=== PATIENT | female | born 1985 | race Caucasian/White ===

== ENCOUNTER → 2019-03-30 08:28 | Outpatient (CLI) | payer OTHER, SELFPAY ==
[2019-03-30 09:35] LABS: Bilirubin Urine UA NEGATIVE (NEGATIVE); Color Urine UA YELLOW; Glucose Urine UA NEGATIVE (Negative); Ketones Urine UA NEGATIVE (NEGATIVE); Leukocyte Esterase Urine UA NEGATIVE (NEGATIVE); Nitrite Urine UA NEGATIVE (Negative); Occult Blood Urine UA NEGATIVE (Negative); Protein Urine UA NEGATIVE (Negative); Urobilinogen Urine UA 0.2 E.U./dL (0.2); pH Urine UA 6.5 (4.5-8.0)
[2019-03-30 09:36] LABS: Appearance Urine UA Slightly Cloudy
[2019-03-30 09:42] LABS: Add Manual Diff / Slide Review NO; Basophils Absolute Auto 0 /uL (0-100); Basophils Percent Auto 0.3 % (0-2); Eosinophils Absolute Auto 100 /uL (0-450); Eosinophils Percent Auto 1.2 % (2-4); Hematocrit 36.9 % (36-46); Hemoglobin 12.6 g/dL (12.0-16.0); Lymphocytes Absolute Auto 1700 /uL (1100-4500); Lymphocytes Percent Auto 22.1 % (25-40); Mean Corpuscular HGB Conc 34.1 % (30-36); Mean Corpuscular Hemoglobin 29.4 PG (26-34); Mean Corpuscular Volume 86.1 fL (80-100); Monocytes Absolute Auto 500 /uL (0-900); Monocytes Percent Auto 6.5 % (3-14); Neutrophils Absolute Auto 5500 /uL (1500-7000); Neutrophils Percent Auto 69.9 % (50-75); Platelet Count 334 X10^3/uL (150-400); Red Blood Cell Count 4.28 X10^6/uL (4.0-5.2); Red Cell Distribution Width 13.3 % (11.6-14.8); White Blood Cell Count 7.9 X10^3/uL (4.5-11.0)
[2019-03-30 10:28] LABS: Hepatitis B Surface Antigen NEGATIVE s/c (NEGATIVE)
[2019-03-30 10:47] LABS: HIV 1 & 2 Ab/Ag 4th Gen Combo NEGATIVE (NEGATIVE); Hep C Virus Ab w/Reflex Quant NEGATIVE s/c (NEGATIVE)
[2019-04-01 23:56] LABS: RPR Screen Nonreactive (Nonreactive)
== END ==
PROVIDERS: Visit Provider Specialist
DX: Z34.90 Encounter for supervision of normal pregnancy, unspecified, unspecified trimester (principal)
CPT/HCPCS: 36415; 80055; 81003; 86787; 86803; 86850; 86900; 86901; 87086; 87389

== ENCOUNTER → 2019-04-11 18:32 | Outpatient (ROUT) | payer OTHER, SELFPAY ==
[2019-04-11 20:13] LABS: Urine N gonorrhoeae NOT DETECTED
[2019-04-11 20:15] LABS: Urine Chlamydia NOT DETECTED
== END ==
PROVIDERS: Visit Provider Specialist
DX: Z34.81 Encounter for supervision of other normal pregnancy, first trimester (principal)
CPT/HCPCS: 87491; 87591

== ENCOUNTER → 2019-07-04 14:19 | Outpatient (CLI) | payer OTHER, SELFPAY ==
--- NOTE | 2019-07-04 14:22 | DI.US.S_ITS ---
PROCEDURE: US OB >= 14 WEEKS FETUS INDICATIONS: ANATOMY OUTSIDE/PRIOR DATING DATA: Last menstrual period (LMP): 02/05/19. LMP-based estimated date of delivery (DOLLY): 10/15/19. First dating scan (date and location): 04/11/19. Estimated date of delivery (DOLLY) from first dating scan: 11/10/19. TECHNIQUE: Real-time scanning was performed of the fetus, with image documentation and biometric measurements. Endovaginal scanning: No COMPARISON: [employer] [facility], , OB >= 14 WEEKS FETUS, 06/11/2019, 10:29. FINDINGS: General: A single living intrauterine gestation is present. Presentation: Vertex. Placenta: Placental position is anterior, without previa. Amniotic fluid index: 15.1 cm cm, normal range is 5-24 cm. heart rate: 152 beats per minute. Maternal cervical canal: 3.2 cm long. Normal lower limit is 2.5 cm. biometrics: Biparietal diameter: 22 weeks 0 days Head circumference: 22 weeks 3 days Abdominal circumference: 23 weeks Femur length: 21 weeks 4 days Estimated gestational age from initial scan: 21 weeks 4 days Composite gestational age from present scan: 20 weeks 2 days Estimated weight and percentile: 498 g; 84th percentile Measurement variability for biometric dating: +/- 7 days from 14 weeks to 15 weeks 6 days gestation, +/- 10 days from 16 weeks to 21 weeks 6 days gestation, +/- 2 weeks from 22 weeks to 27 weeks 6 days gestation, +/- 3 weeks for 28 weeks gestation or later. weight reference: 4500 g or EFW >90/95% is considered macrosomia or large for gestational age. EFW <10% is small for gestational age. EFW 5% or less is considered intra-uterine growth restriction. Anatomic survey: Neuro: Ventricles are non-dilated at less than 10 mm. Cisterna magna is normal at 3-11 mm. Cerebellum is normal in size and morphology. Nuchal skin fold: Normal at less than 6 mm between 14-21 weeks gestational age. Face: Nose and lips, facial profile are normal. Spine: No evidence for spina bifida. Heart: 4-chambered heart is present, with normal ventricular outflow tracts. Diaphragm: Diaphragm is intact. Stomach: Left-sided stomach is present. Kidneys: No hydronephrosis. Normal is less than 5 mm in 2nd trimester, less than 7 mm in 3rd trimester. Cord: 3-vessel cord has orthotopic insertion. Bladder: Normal in size. Extremities: All 4 extremities identified. IMPRESSION: 1. Normal interval growth. 2. Normal anatomic survey. Dictated by: Cristhian Todd [facility] Interpreted: Grace Healy MD on 07/04/2019 at 15:19 Approved by: Grace Healy MD, PhD on 07/04/2019 at 16:54
== END ==
PROVIDERS: PCP Specialist; Visit Provider Specialist
DX: Z34.82 Encounter for supervision of other normal pregnancy, second trimester (principal); Z3A.20 20 weeks gestation of pregnancy
CPT/HCPCS: 76811

== ENCOUNTER → 2019-07-23 09:57 | Outpatient (CLI) | payer OTHER, SELFPAY ==
[2019-07-23 11:57] LABS: Hematocrit 34.5 % (36-46); Hemoglobin 11.8 g/dL (12.0-16.0)
[2019-07-23 12:10] LABS: GTT (PREG) 1 Hour PP 50gm Dose 108 mg/dL (76-139)
== END ==
PROVIDERS: PCP Specialist; Visit Provider Specialist
DX: Z34.82 Encounter for supervision of other normal pregnancy, second trimester (principal)
CPT/HCPCS: 36415; 82950; 85014; 85018

== ENCOUNTER → 2019-10-19 10:39 | Outpatient (CLI) | payer OTHER, SELFPAY ==
[2019-10-20 08:57] LABS: Strep Grp B PCR NEG for Grp B Strep
== END ==
PROVIDERS: PCP Specialist; Visit Provider Specialist
DX: Z34.83 Encounter for supervision of other normal pregnancy, third trimester (principal); Z3A.36 36 weeks gestation of pregnancy
CPT/HCPCS: 87653

== ENCOUNTER 2019-11-09 01:05 | Inpatient (IN) | payer OTHER, SELFPAY ==
[2019-11-09 01:33] VITALS: BP 123/85
[2019-11-09] MEDS: LACTATED RINGERS 1,000 ML 100 ML IV ×3 (01:59→12:36)
[2019-11-09 02:01] LABS: Add Manual Diff / Slide Review NO; Basophils Absolute Auto 100 /uL (0-100); Basophils Percent Auto 0.8 % (0-2); Eosinophils Absolute Auto 100 /uL (0-450); Eosinophils Percent Auto 0.9 % (2-4); Hematocrit 37.2 % (36-46); Hemoglobin 12.7 g/dL (12.0-16.0); Lymphocytes Absolute Auto 2300 /uL (1100-4500); Lymphocytes Percent Auto 22.5 % (25-40); Mean Corpuscular HGB Conc 34.1 % (30-36); Mean Corpuscular Hemoglobin 30.3 PG (26-34); Mean Corpuscular Volume 88.8 fL (80-100); Monocytes Absolute Auto 700 /uL (0-900); Neutrophils Absolute Auto 7200 /uL (1500-7000); Neutrophils Percent Auto 68.8 % (50-75); Platelet Count 275 X10^3/uL (150-400); Red Blood Cell Count 4.19 X10^6/uL (4.0-5.2); Red Cell Distribution Width 13.1 % (11.6-14.8); White Blood Cell Count 10.4 X10^3/uL (4.5-11.0)
--- NOTE | 2019-11-09 06:37 | P.HPOB_ITS ---
OB HPI Date/Time Date of admission: 11/09/19 Date Patient Seen: 11/09/19 Time Patient Seen: 06:37 History of Present Condition Chief complaint: LABOR : 2 Para: 1 Estimated Date of Delivery: 11/13/19 Estimated Gestational Age (weeks): 39w3d Narrative: Jami Siddiqui is a 34 year old female at 39 weeks and 3 days gestation. Contractions began yesterday and increased in intensity at midnight. has been uncomplicated with good care with Dr. Baig. Normal labs and ultrasounds. Patient denies leaking of fluid or vaginal bleeding and reports good movement. Denies headaches, vision changes or new swelling. History of Present care: initiated at week # (9), number of visits (11) and pounds weight gain (21) Dating criteria: LMP confirmed by 1st trimester US Ultrasounds: normal mid trimester US Obstetrical complications: none Medical complications: none Preadmission Labs Blood type: O (+) positive -: Antibody screen: negative, GBS status: negative, HBsAG: negative, HIV: negative and RPR/VDLR: negative -: Chlamydia screen: not detected and Gonorrhea screen: not detected -: Rubella: immune and Varicella: immune HCT: 36.9 HCAB: negative PAP: Normal Urine: Negative 1 hr GTT: 108 Prior (ies) History: 06/08/2017 , induction at 41 for postdates, 6# 14 oz male, epidural, baby transferred after due to concern for clotting disorder Evaluation Evaluation Baseline heart rate: 130 Variability: Average (6-10) monitor accelerations: Present monitor decelerations: Absent Contraction Frequency (minutes): 3 Category of Tracing: II Cervical dilation (cm): 7 Cervical effacement (%): 100 station: -3 Laboratory results: Laboratory Tests 11/09/19 11/09/19 01:45 01:45 WBC 10.4 RBC 4.19 Hgb 12.7 Hct 37.2 MCV 88.8 MCH 30.3 MCHC 34.1 RDW 13.1 Plt Count 275 Neut % (Auto) 68.8 Lymph % (Auto) 22.5 L [place] % (Auto) 7.0 Eos % (Auto) 0.9 L Baso % (Auto) 0.8 Neut # (Auto) 7200 H Lymph # (Auto) 2300 [place] # (Auto) 700 Eos # (Auto) 100 Baso # (Auto) 100 Blood Type O Positive Antibody Screen Negative ON LICENSE OF [facility] Medical History Vaginal delivery (Inactive 06/08/17) Social History Smoking Status: Never smoker Meds Home Medications and Allergies Home Medications Medication Instructions Recorded Confirmed Type No Known Home Medications 11/09/19 11/09/19 History Allergies Allergy/AdvReac Type Severity Reaction Status Date / Time amoxicillin [AMOXICILLIN] Allergy Mild Verified 11/17/18 08:58 Review of Systems Review of Systems ROS: Yes All systems reviewed with the patient and are negative except as otherwise documented Exam Vital Signs (past 8 hours): - 11/09/19 01:33 Blood Pressure 123/85 Temperature 36.5? blood pressure 100/61 heart rate 75 Const General: healthy appearing and comfortable HENMT Head: normal to inspection Ears: hearing grossly normal bilaterally Nose: external nose normal Face and sinus: normal facial exam Mouth: oral mucosae normal Eyes General: appearance normal, both eyes and all related structures Neck Neck: normal visual inspection Resp Effort & Inspection: normal respiratory effort Cardio Rate: regular rate GI Other: Gravid External Female Exam: external appearance normal Manual OB Exam: dilated 7, effaced fully and station high Presentation: vertex Estimated Weight (lbs): 7 Back/Spine/Pelvis Back: normal to inspection Skin General: no rashes or lesions noted Extrem General: normal to inspection and no pedal edema Objective Labs Result Diagrams: 11/09/19 01:45 Labs: Laboratory Results - last 24 hr 11/09/19 11/09/19 01:45 01:45 WBC 10.4 RBC 4.19 Hgb 12.7 Hct 37.2 MCV 88.8 MCH 30.3 MCHC 34.1 RDW 13.1 Plt Count 275 Neut % (Auto) 68.8 Lymph % (Auto) 22.5 L [place] % (Auto) 7.0 Eos % (Auto) 0.9 L Baso % (Auto) 0.8 Neut # (Auto) 7200 H Lymph # (Auto) 2300 [place] # (Auto) 700 Eos # (Auto) 100 Baso # (Auto) 100 Blood Type O Positive Antibody Screen Negative Assessment and Plan Assessment and Plan Assessment and Plan narrative: 34-year-old at 39 weeks and 3 days gestation in active labor. Comfortable with epidural. GBS negative. She has had slow cervical change management expert the last 3 hours but has changed. Head is still high, suspect asynclitic or OP. Will continue with the peanut ball and frequent turn ing. Reassess in 1 hour, if no change will start Pitocin.
--- NOTE | 2019-11-09 08:20 | PM.OBPNLAB ---
Date/Time Date Patient Seen: 11/09/19 Time Patient Seen: 08:15 Pain Control Pain control: epidural Pelvic Exam Dilation (cm): 8 Effacement (%): 100 station: -2 Amniotic membrane status: Ruptured (AROM thin meconium) Contractions Contraction frequency (min): 4 Status status: Category l Heart Rate Baseline: 130 Monitor Accelerations: Present Monitor Decelerations: Absent Monitor Variability: Moderate Assessment and Plan Assessment: active labor Plan: continuous present management
--- NOTE | 2019-11-09 09:38 | PM.OBPNLAB ---
Date/Time Date Patient Seen: 11/09/19 Time Patient Seen: 09:30 Pain Control Pain control: tolerating well Comments: Feeling rectal pressure with contractions but not between contractions. Pelvic Exam Dilation (cm): 10 Effacement (%): 100 station: -1 Amniotic membrane status: Ruptured (AROM thin meconium) Contractions Contraction frequency (min): 5 Contraction pattern: Regular Status status: Category ll Heart Rate Baseline: 130 Monitor Accelerations: Present Monitor Decelerations: Variable Monitor Variability: Moderate Assessment and Plan Assessment: active labor Plan: continuous present management Comments: Shortly after AROM patient had a prolonged 4 minute deceleration to the 60's. Oxygen applied and fluids bolused. Smaller variables continued for several contractions then resolved. Dr. Clarke was made aware of the situation. Patient then developed significant rectal pressure with a contraction so was checked and found to be complete and minus 1. Will wait for constant rectal pressure before initiating pushing.
--- NOTE | 2019-11-09 11:20 | P.PNOB_ITS ---
Date/Time Date Patient Seen: 11/09/19 Time Patient Seen: 11:20 Pain Control Pain control: epidural Pelvic Exam Dilation (cm): 10 Effacement (%): 100 station: -1 Amniotic membrane status: Ruptured (AROM thin meconium) Contractions Contraction frequency (min): 4 Contraction pattern: Regular Status status: Category ll Heart Rate Baseline: 130 Monitor Accelerations: Present Monitor Decelerations: Prolonged (with pushing) Monitor Variability: Moderate Assessment and Plan Plan: Comments: Patient complete and attempted pushing however had a prolonged deceleration for over 2 minutes to the 80s. Dr. Clarke was asked to come at that time. FHT recovered however there was another prolonged deceleration for 5 minutes with pushing with eventual recovery to baseline. Dr. Clarke placed a FSE and noted no significant descent with pushing. Given intolerance of labor and lack of descent, the decision was made to proceed with primary c- section. Risks reviewed with patient, specifically risk of infection, bleeding, injury to fetus or nearby organs (bowel and bladder). Consent signed and placed in chart. Clindamycin 900 mg IV will be given prior to surgery due to penicillin allergy.
--- NOTE | 2019-11-09 11:20 | PM.PREOP ---
Pre-operative Note Interval Note History & Physical reviewed/Exam performed by Physician: Yes Changes to H&P: No
[2019-11-09] MEDS: CLINDAMYCIN 900 MG/50 ML PIGGYBACK 50 MG IV (11:36)
--- NOTE | 2019-11-09 11:57 | SUR.OPER ---
Supine on Padded OR bed, head on pillow, safety belt at thigh, arms secured on padded arm boards at <90 degrees abduction. Bump under right buttock. Legs uncrossed with pillow under knees, gel pad to heels, tape over blanket to lower legs.
--- NOTE | 2019-11-09 12:20 | SUR.OPER ---
FHT's 116 TOB alive male at 11:56 am Cord blood x 2 and placenta given to OB nurse
[2019-11-09] MEDS: ACETAMINOPHEN IV 1,000 MG/100 ML VIAL 400 MG IV (12:27)
[2019-11-09 12:56] VITALS: BP 105/73; PULSE 66; RESP 21; TEMP 36.1; O2SAT 98
[2019-11-09 13:01] VITALS: BP 100/70; PULSE 64; RESP 17; O2SAT 97
[2019-11-09 13:06] VITALS: BP 108/71; PULSE 73; RESP 11; O2SAT 97
[2019-11-09 13:11] VITALS: BP 101/66; PULSE 71; RESP 11; O2SAT 97
[2019-11-09] MEDS: KETOROLAC 30 MG/ML VIAL IV ×2 (13:12→20:49)
[2019-11-09 13:15] VITALS: BP 104/71; PULSE 59; RESP 15; O2SAT 97
--- NOTE | 2019-11-09 13:33 | SUR.PHASEI ---
pt transferred to center in stable condition, vss. pt and baby at bedside upon arrival to room. Bedside report given to HARRISON Ulloa and transferred care of pt to her at that time. Pt in stable condition, alert and talking to and RN at bedside.
--- NOTE | 2019-11-09 15:59 | PM.OBPNLAB ---
Date/Time Date Patient Seen: 11/09/19 Time Patient Seen: 10:40 Pain Control Pain control: epidural Pelvic Exam Dilation (cm): 10 Effacement (%): 100 station: -1 Amniotic membrane status: Ruptured (AROM thin meconium) Comments: OP position Contractions Contraction frequency (min): 4 Contraction pattern: Regular Status status: Category ll Heart Rate Baseline: 125 Monitor Accelerations: Absent Monitor Decelerations: Prolonged Monitor Variability: Moderate Assessment and Plan Plan: Comments: I was consulted as OBGYN environmental protection geologist, as Dr. Baig is out of the hospital this week. Consulted and patient reviewed with me. 34-year-old P1 female. She had a prior vaginal delivery, pushed for 4-1/2 hours and delivered from OP position. This had been uncomplicated and she had presented in labor, making normal progress to 8 cm. I was consulted to be on standby when at 8cm after AROM, she had a deceleration for 3 minutes down to 70 which recovered, to baseline, but then she initially continued with intermittent moderate variable decelerations. On my arrival the moderate variable deceleration and had gradually decreased in intensity and then initially resolved for awhile. Baseline was normal and she had moderate variability, category 2 EFM. FHR then had return of intermittent mild and moderate variable decelerations, at times repetitive then would result intermittent, with normal baseline, moderate variability, Cat 2 EFM. She was allowed to labor with close observation. She progressed to completely dilated. With pushing with being completely dilated, she had a severe deceleration to the 70s with good recovery. I was present towards the end of this push and exam under with her next push. She was pushing fairly well but with only a little descent with the push. Position was noted to be OP position, -1 station. With the pushed FHR had a prolonged deceleration to 70s, for 5 minutes. I placed a scalp electrode, to help delineate the FHR since maternal pulse had also been in the 70s and every HR was in the 70s. FHR had recovery to 120s with repositioning patient to her left side, and no decelerations over the next 4 contractions. I discussed the significant FHR deceleration with the pushing, and it appeared the patient would need to push awhile, with the baby's position and progress with that 1 push. Thus I recommended proceeding with section since remote from delivery. I discuss could have her try pushing on her side but I suspected the severe deceleration would recur even on her side as she pushed the baby lower.. She preferred to proceed with at this time. I reviewed section procedure. I discussed small risk of the procedure including bleeding, infection, injury to adjacent organs including bowel and bladder, as well as small risk of injury to the baby.. Written consent was obtained. OR had already been notified of possible with the prolonged deceleration and was now notified that we would proceed with section. FHR remained more reassuring now without pushing, with a normal baseline and only mild to quick moderate variable deceleration and with being on her left side. Since she had some spotty areas with her epidural, plan was to place a spinal for the and FHR without pushing was reassuring to proceed this way. Clindamycin was ordered for antibiotics prophylaxis due to her Amoxacillin allergy.
--- NOTE | 2019-11-09 16:34 | PM.OP.1 ---
Operative Date/Time/Diagnoses Date of procedure: 11/09/19 Time of procedure: 12:45 Procedure & Clinicians Procedure: Primary section Same procedure as scheduled: Yes Indications: 39 weeks gestation, intolerance of labor Surgeon: Belkis [employer] Chief Creative Officer: Joana Lorenzo Anesthesia Type: Spinal Operative Notes Findings: Baby was in the right occiput posterior position. Nuchal cord x1 was present which was reduced. Amniotic fluid appeared clear on delivery, previously light meconium had been noted with AROM. Normal uterus, tubes and ovaries were noted. Vigorous viable baby boy was delivered, weight 6 lb 0 oz, Apgars 9,10. Closure Type: primary Specimen(s): other (Cord blood sent to lab. Placenta will be disposed of.) Applied: catheter Estimated Blood Loss (mL): 250 Blood products transfused: none Procedure in detail: IV fluids: 1500 mL crystalloid Urine output: 600 mL Description procedure: She was transferred from the center to the operating room. She was given IV clindamycin for prophylaxis. After an adequate level of spinal anesthesia was obtained, she was placed in the supine position, Verdugo catheter was placed and the scalp lead was removed. FHR auscultated after spinal anesthesia was 115. I re-checked FHR after scalp lead was removed and FHR was 100s. She was quickly prepped and draped in routine sterile fashion. A Pfannenstiel skin incision was made in the lower abdomen and carried down to the level of the fascia. The fascia was incised in the midline and was bluntly extended transversely. The superior and inferior edges of the fascia were elevated and dissected off the rectus muscles with sharp and blunt dissection. The muscles were bluntly split in the midline. The parietal peritoneum was elevated, incised and extended bluntly. The bladder blade was placed. The visceral peritoneum was elevated off the lower uterus, incised and the bladder flap was bluntly created. The bladder blade retractor was placed. A transverse incision was made in the lower uterus and the uterus was entered revealing clear fluid. The uterine incision was extended transversely with blunt dissection. Directly beneath the incision was the baby's shoulders. The head was palpable inferior to the pubic bone fairly low in the pelvis from her pushing. The head was able to be elevated without difficulty to the uterine incision and delivered through the incision with some minimal fundal pressure. appear to be elevated from the OP position. Nuchal cord x1 was reduced. Anterior and posterior shoulders followed by the body were delivered with ease. The cried spontaneously. Cord was clamped and cut and the was handed off to respiratory therapy who was present for delivery. Cord blood was obtained a specimen. The placenta was manually removed. It appeared intact with a normal three-vessel cord. The uterus was swept clean of adherent clots and membranes. The uterus was brought through the abdominal incision and closed in 2 layers with 0 Vicryl, the 1st layer being in running locking continuous fashion and the 2nd layer being in a vertical imbricating type fashion. With closure of the 1st layer on her left side there was noted to be bleeding from a small arterial vessel, appeared to be a branch of the uterine artery, since adjacent to this vessel was the vertical running uterine artery. A superficial [id number] suture around the uterine artery was placed and hemostasis was obtained. After then placing the 2nd imbricating layer hemostasis remained. The tubes and ovaries were inspected and noted to be normal. The uterus was placed back into the maternal abdomen. The paracolic gutters were inspected and wiped of some minimal blood and fluid. The anterior cul-de-sac was inspected and some clot was removed. The uterine incision was inspected and good hemostasis was noted. The pelvis was irrigated. Repeat inspection showed continued hemostasis. The abdomen was closed. The muscles were reapproximated with 2 interrupted sutures of 0 Vicryl. The fascia was closed with running continuous suture of 0 Vicryl. The skin was closed with a subcuticular suture of 4 0 Monocryl. Steri-Strips and sterile Aquacel dressing was placed. She tolerated the procedure well and went to the recovery room in stable condition. Complications: none Post-operative Condition: stable Disposition: PACU Plan for aftercare: Transferred to the Center in good condition
[2019-11-09] MEDS: DOCUSATE 250 MG CAPSULE PO (20:48)
[2019-11-10] MEDS: KETOROLAC 30 MG/ML VIAL IV ×2 (02:13→08:11)
[2019-11-10 06:57] LABS: Add Manual Diff / Slide Review NO; Basophils Absolute Auto 0 /uL (0-100); Basophils Percent Auto 0.3 % (0-2); Eosinophils Absolute Auto 100 /uL (0-450); Eosinophils Percent Auto 0.8 % (2-4); Hematocrit 28.8 % (36-46); Hemoglobin 9.8 g/dL (12.0-16.0); Lymphocytes Absolute Auto 1800 /uL (1100-4500); Lymphocytes Percent Auto 18.2 % (25-40); Mean Corpuscular HGB Conc 34.1 % (30-36); Mean Corpuscular Hemoglobin 30.7 PG (26-34); Monocytes Absolute Auto 700 /uL (0-900); Monocytes Percent Auto 6.5 % (3-14); Neutrophils Absolute Auto 7500 /uL (1500-7000); Neutrophils Percent Auto 74.2 % (50-75); Platelet Count 191 X10^3/uL (150-400); Red Cell Distribution Width 12.9 % (11.6-14.8); White Blood Cell Count 10.1 X10^3/uL (4.5-11.0)
[2019-11-10] MEDS: DOCUSATE 250 MG CAPSULE PO (08:12)
[2019-11-10] MEDS: OXYCODONE IR 5 MG TABLET PO ×4 (08:13→23:09)
--- NOTE | 2019-11-10 09:03 | PM.PNPO.1 ---
Subjective Subjective Date Patient Seen: 11/10/19 Time Patient Seen: 09:30 Interval history: Patient feels well. Incisional pain is well controlled. Tolerating p.o.s. lochia normal. Denies fever or nausea. Baby is overall latching well for Exam Vital Signs (past 8 hours): Afebrile. BP 93-101/60s pulse 65, RR 16, urine output 850 mL/9 hours Oxygen Delivery Method Room Air Narrative Exam Narrative: General: Well-appearing female Abdomen: Soft, nontender, nondistended. Dressing is dry and intact Extremities no edema, no calf tenderness SCDs were in place, just removed Objective Labs Result Diagrams: 11/10/19 06:42 Labs: Laboratory Results - last 24 hr 11/10/19 06:42 WBC 10.1 RBC 3.20 L Hgb 9.8 L Hct 28.8 L MCV 90.0 MCH 30.7 MCHC 34.1 RDW 12.9 Plt Count 191 Neut % (Auto) 74.2 Lymph % (Auto) 18.2 L [place] % (Auto) 6.5 Eos % (Auto) 0.8 L Baso % (Auto) 0.3 Neut # (Auto) 7500 H Lymph # (Auto) 1800 [place] # (Auto) 700 Eos # (Auto) 100 Baso # (Auto) 0 Assessment & Plan Post-op Assessment and plan (1) Status post section: Postoperative Procedures: Procedures Operation Date: 11/09/19 13:00 Actual Procedures Side Surgeon p Section Belkis Clarke MD Operation Date: 11/12/19 12:00 <No data on this case meets the specified criteria> Postoperative day: 1 Postoperative status: doing well Postoperative plan: routine post-op care and ambulate Time Spent With Patient Time with patient: less than 15 minutes
[2019-11-10 12:21] VITALS: TEMP 36.8
[2019-11-10] MEDS: IBUPROFEN 600 MG TABLET PO ×2 (17:28→23:09)
[2019-11-10] MEDS: LANOLIN OINT 7 GM 1 APPLIC TOP (23:10)
[2019-11-11] MEDS: IBUPROFEN 600 MG TABLET PO (05:24)
[2019-11-11] MEDS: OXYCODONE IR 5 MG TABLET PO ×3 (05:25→17:43)
--- NOTE | 2019-11-11 07:45 | PM.PNPO.1 ---
Subjective Subjective Date Patient Seen: 11/11/19 Time Patient Seen: 07:45 Interval history: The patient feels well. She does have some increased incisional discomfort today, but well controlled with the oxycodone. I advised taking some deep breath hourly, noted temp 99.2? this a.m.. She reports she thinks she has been taking some shallow breaths then was walking a little hunched over. Got out of bed now however as we talked use the bathroom and feels better with moving after taking an oxycodone. Lochia is normal. Tolerating p.o. Passing flatus. Baby latching without problems, did some cluster feeding last night. Exam Vital Signs (past 8 hours): Afebrile BP 113/71, Pulse 82 RR 16 Oxygen Delivery Method Room Air Narrative Exam Narrative: General: Well-appearing female, baby latching currently without problems Abdomen: soft, nondistended, only mild expected april-incisional tenderness. Dressing removed. Incision intact, dry, no erythema Fundus: U -1, firm, nontender Extremities trace pedal edema. No calf tenderness Objective Labs Result Diagrams: 11/10/19 06:42 Assessment & Plan Post-op Postoperative Procedures: Procedures Operation Date: 11/09/19 13:00 Actual Procedures Side Surgeon p Section Belkis Clarke MD Operation Date: 11/12/19 12:00 <No data on this case meets the specified criteria> Postoperative day: 2 Postoperative status: doing well Postoperative plan: routine post-op care Postoperative plan narrative: Continue increase ambulation Advised 3 deep breaths hourly to prevent atelectasis, discussed Questions on expectations at home, postop recovery answered
[2019-11-11] MEDS: DOCUSATE 250 MG CAPSULE PO (10:40)
[2019-11-11 17:43] VITALS: TEMP 36.8
[2019-11-12] MEDS: OXYCODONE IR 5 MG TABLET PO ×3 (00:22→14:37)
[2019-11-12] MEDS: IBUPROFEN 600 MG TABLET PO ×3 (00:23→14:37)
[2019-11-12] MEDS: ACETAMINOPHEN 325 MG TABLET 650 MG PO (00:23)
[2019-11-12] MEDS: DOCUSATE 250 MG CAPSULE PO (08:46)
--- NOTE | 2019-11-12 09:28 | PM.OBDS.1 ---
Discharge Providers Provider Date of admission: 11/09/19 01:05 Discharge Date: 11/12/19 Primary care physician: Britney Baig MD Consults: 11/09/19 01:33 Consult to Anesthesiology Urgent Comment: Consulting Provider: Anesthesiologist Reason for consultation: Epidural Has provider been notified: No 11/09/19 15:57 Consult to Manpower Development Manager Routine Comment: Discharge provider: Belkis Clarke MD Summary Discharge Diagnosis (1) Status post section: Status: Acute Problem Details: 34 year old female was admitted at 39 weeks in labor. She underwent primary lower transverse section due to intolerance to labor. She developed some heart rate decelerations as she progressed in labor, after artificial rupture membranes. In 2nd stage with start of pushing she had prolonged deceleration in the 70s and was consented to proceed with section for delivery due to intolerance of labor. heart rate recovered to normal baseline without pushing while awaiting transfer to the OR. She underwent primary lower transverse section without complications. A vigorous baby boy was delivered, weighing 6 lb 0 oz with Apgars of 9 in 10. She had a normal postoperative course. She remained afebrile. She was tolerating a normal diet and had normal return of bowel function, passing flatus. She ambulated without problems. She was breast-feeding without difficulty. She was doing well and was discharged to home on postoperative day 3 Time Spent with Patient Time attestation: Total time spent providing and/or coordinating discharge services: 20 minutes Objective Labs Result Diagrams: 11/10/19 06:42 Exam Vital Signs (past 8 hours): Afebrile, BP 121/76, pulse 78, respiratory rate 17 Oxygen Delivery Method Room Air Narrative Exam Narrative: General: Well-appearing female, NAD Abdomen: Soft, nontender, nondistended. Incision intact. There is older purplish bruising noted superior and extending inferiorly. No erythema. No drainage. No signs of infection. Fundus: U -1, firm, nontender Extremities: No edema Discharge Plan Discharge Plan Patient Disposition: Home Discharge orders & Medications Prescriptions: New ibuprofen 600 mg Tablet 600 mg PO Q6HR PRN (Reason: Fever/Mild Pain (1-3)) Qty: 30 RF: 0 docusate sodium 250 mg Capsule 250 mg PO DAILY Qty: 20 RF: 0 oxycodone 5 mg Tablet 5 mg PO Q4HR PRN (Reason: Pain, Moderate (4-6)) Qty: 30 RF: 0 No Action No Known Home Medications RF: 0 Follow up/Referrals: Britney Baig MD [Primary Care Provider] - 1 Week (Incision check TuesdayNovember 15 at 1000am with a 0945 check in time. Please call for any questions/concerns or to reschedule.) Diet/Activity/Treatments Diet: Regular Activity: Nothing in vagina or lifting over 20 lb for 6 weeks Skin/Wound/Dressing Care Report to your healthcare provider any signs of infection, such as:: chills, fever, increased pain and unusual redness Other wound treatment: Can get Steri-Strips wet just pat dry Visit Report/Discharge Packet Stand Alone Forms: Discharge: Care Discharge Data Primary Care Provider: Britney Baig Discharges patient from system. Discharge Date/Time: 11/12/19 15:25
--- NOTE | 2019-11-12 09:29 | PM.OBPN.1 ---
Subjective - OB Subjective Patient comments: no complaints, pain well controlled, tolerating diet and flatus present baby status: doing well [place] feeding status: exclusively breast feeding Narrative: Jami reports that she feels well. Lochia is normal. She is ambulating well. Continues to tolerate a regular diet. Denies fever or nausea. Needing less oxycodone, only needed it after 8 hours last night. without problems. Baby is gaining some weight. She is looking forward to going home. Date Patient Seen: 11/12/19 Time Patient Seen: 09:31 Exam Vital Signs (past 8 hours): Afebrile BP 121/96, pulse 78, RR 17 Oxygen Delivery Method Room Air Narrative Exam Narrative: General: Well-appearing female, currently breast feeding with baby noted to have good suck Abdomen: Soft, nontender, nondistended. Incision intact. There is older purplish bruising noted superior and extending inferiorly. No erythema. No drainage. No signs of infection. Fundus: U -1, firm, nontender Extremities: No edema Objective Labs Result Diagrams: 11/10/19 06:42 Assessment & Plan Assessment and Plan (1) Status post section: Status: Acute Current Visit: Yes Plan day: 3 plan OB: discharge home and other (Follow-up in 2 weeks for an incision check) Comments: She is doing well and is ready for discharge home Postop precautions reviewed for at home. Time Spent With Patient Time: Total time spent is greater than 50% in coordination of care (as documented) at patient's floor/unit and/or counseling patient: Time with patient: 15-24 minutes
[2019-11-12 11:30] VITALS: BP 104/71; PULSE 59; RESP 15; TEMP 36.8
[2019-11-12 11:33] VITALS: BP 104/71; PULSE 59; RESP 15; TEMP 36.8
== END 2019-11-12 15:25 | disposition home or self-care (01) | DRG 788 ==
PROVIDERS: Admitting Provider Family Medicine; PCP Specialist; Referring Provider Family Medicine; Visit Provider Obstetrics & Gynecology
PROC: 10D00Z1 Extraction of Products of Conception, Low, Open Approach (ICD-10-PCS; CPT 59514; principal; 2019-11-09 13:00)
DX: O76 Abnormality in fetal heart rate and rhythm complicating labor and delivery (principal); Z3A.39 39 weeks gestation of pregnancy; Z37.0 Single live birth; O77.0 Labor and delivery complicated by meconium in amniotic fluid; O69.81X0 Labor and delivery complicated by cord around neck, without compression, not applicable or unspecified
CPT/HCPCS: 01967; 01968; 36415; 59050; 59510; 59514; 85025; 86850; 86900; 86901; G0379; J0131; J1885; J2274; J2405; J2590

== ENCOUNTER → 2020-08-29 15:31 | Outpatient (CLI) | payer OTHER, SELFPAY ==
[2020-08-29] MEDS: COVID-19 VACC(MODERNA-1)/PF 100 MCG/0.5 ML VIAL IM (15:42)
== END ==
PROVIDERS: PCP Specialist; Visit Provider Internal Medicine
DX: Z23 Encounter for immunization (principal)
CPT/HCPCS: 0011A; 91301

== ENCOUNTER → 2020-09-24 15:50 | Outpatient (CLI) | payer OTHER, SELFPAY ==
[2020-09-24] MEDS: COVID-19 VACC #2, MRNA(MOD) 100 MCG/0.5 ML VIAL IM (15:53)
== END ==
PROVIDERS: PCP Specialist; Visit Provider Internal Medicine
DX: Z23 Encounter for immunization (principal)
CPT/HCPCS: 0012A; 91301

== ENCOUNTER → 2023-08-16 09:27 | Outpatient (CLI) | payer OTHER, SELFPAY ==
--- NOTE | 2023-08-16 09:28 | DI.MG.S_ITS ---
BILATERAL DIGITAL DIAGNOSTIC MAMMOGRAM 3D/2D: 08/16/2023 CLINICAL: Baseline exam. Breast lump. No prior exams were available for comparison. Both breasts are extremely dense, which lowers the sensitivity of mammography (category d />75% glandular tissue). No significant masses, calcifications, or other findings are seen in either breast. Specifically, no finding to correspond to the patient's palpable abnormality. IMPRESSION: INCOMPLETE: NEEDS ADDITIONAL IMAGING EVALUATION Extremely dense tissue but baseline screening mammograms are normal. There are no abnormalities seen in the left breast to correspond with the palpable nodularities in the lower inner quadrant. Ultrasound is recommended for full evaluation of this area. This was performed immediately following this exam. Based on the Tyrer Cuzick model (a risk assessment model) the patient's lifetime risk is 14.4% and her 10 year risk is 1.4%. According to the ACR, ACS, and NCCN guidelines, an annual breast MRI exam along with mammogram is recommended if the patient's lifetime risk is 20% or greater. This exam was interpreted at Station ID: [id number]. NOTE: For mammograms, a report in lay terms will be sent to the patient. Approximately 15% of breast malignancies will not be visualized mammographically. In the management of a palpable breast mass, a negative mammogram must not discourage biopsy of a clinically suspicious lesion. Electronically Signed By: Hallie edmonds/:08/16/2023 10:26:13 ACR BI-RADS Category 0: Incomplete [id number]
--- NOTE | 2023-08-16 09:28 | DI.US.S_ITS ---
LIMITED ULTRASOUND OF LEFT BREAST: 08/16/2023 CLINICAL: Palpable left breast lump. Comparison is made to exam dated: 08/16/2023 mammogram - . Ultrasound of the left breast lower inner quadrant was performed. Young scale images of the real-time examination were reviewed. No significant abnormalities were seen sonographically in the left breast. Specifically, no finding to correspond to the patient's palpable abnormality. IMPRESSION: NEGATIVE There is no sonographic correlate to the patient's palpable abnormalities and no evidence of malignancy. Return to annual mammogram screening schedule is recommended. Screening mammography beginning at age 40 is recommended. Findings and recommendations were conveyed to the patient at time of exam. This exam was interpreted at Station ID: [id number]. Electronically Signed By: Hallie edmonds/:08/16/2023 11:40:26 letter sent: Normal Exam Ultrasound BI-RADS: 1 Negative
== END ==
PROVIDERS: PCP Registered Nurse Diabetes Educator; Referring Provider Registered Nurse Diabetes Educator; Visit Provider Registered Nurse Diabetes Educator
DX: R92.343 Mammographic extreme density, bilateral breasts (principal); R92.2 Inconclusive mammogram; N63.20 Unspecified lump in the left breast, unspecified quadrant
CPT/HCPCS: 76642; 77066; G0279

== ENCOUNTER → 2023-08-19 07:19 | Outpatient (CLI) | payer OTHER, SELFPAY ==
[2023-08-19 08:43] LABS: Hematocrit 36.5 % (36-46); Hemoglobin 12.5 g/dL (12.0-16.0); Mean Corpuscular HGB Conc 34.2 % (30-36); Mean Corpuscular Hemoglobin 29.4 PG (26-34); Mean Corpuscular Volume 85.9 fL (80-100); Platelet Count 288 X10^3/uL (150-400); Red Blood Cell Count 4.25 X10^6/uL (4.0-5.2); Red Cell Distribution Width 13.3 % (11.6-14.8); White Blood Cell Count 5.2 X10^3/uL (4.5-11.0)
[2023-08-19 08:58] LABS: Alanine Aminotransferase 14 IU/L (<35); Albumin 4.4 g/dL (3.5-5.0); Albumin Globulin Ratio 1.6 (1.0-2.8); Alkaline Phosphatase 36 U/L (38-126); Aspartate Aminotransferase 18 IU/L (14-36); BUN Creatinine Ratio 23.3 (6-22); Bilirubin Total 0.9 mg/dL (0.2-1.3); Blood Urea Nitrogen 14 mg/dL (7-17); Calcium 9.4 mg/dL (8.4-10.2); Carbon Dioxide 24 mmol/L (22-32); Chloride 104 mmol/L (98-107); Cholesterol 190 mg/dL (140-199); Estimated Glomerular Filt Rate > 60 mL/min (>60); Globulin 2.7 g/dL (1.7-4.1); Glucose 85 mg/dL (70-100); HDL Cholesterol 80 mg/dL (40-60); HEMOLYSIS < 15 (0-50); LDL Cholesterol Calculated 97 mg/dL (<100); Sodium 135 mmol/L (137-145); Total Protein 7.1 g/dL (6.3-8.2); Triglycerides 63 mg/dL (35-150)
[2023-08-19 09:23] LABS: TSH w/ Reflex to FT4 3.39 uIU/mL (0.47-4.68)
== END ==
PROVIDERS: PCP Registered Nurse Diabetes Educator; Referring Provider Registered Nurse Diabetes Educator; Visit Provider Registered Nurse Diabetes Educator
DX: Z00.00 Encounter for general adult medical examination without abnormal findings (principal)
CPT/HCPCS: 36415; 80053; 80061; 84443; 85027